=== PATIENT | female | born 1975 | race Caucasian/White ===

== ENCOUNTER 2018-10-07 07:36 | Emergency (ER) | payer OTHER ==
[2018-10-07] MEDS ORDERED: METHYLPREDNISOLONE 125 MG INJ ONE (08:08)
[2018-10-07] MEDS ORDERED: FAMOTIDINE 20 MG TAB ONE (08:09)
[2018-10-07] MEDS ORDERED: DIPHENHYDRAMINE 50 MG/ML VIAL ONE (08:09)
--- NOTE | 2018-10-07 08:33 | ER ---
Nurse's Notes [facility] Name: Betty Rosado Age: 43 yrs Sex: Female : 1975 Arrival Date: 10/07/2018 Time: 07:38 Bed 15 Private MD: Diagnosis: Urticaria, unspecified;Allergy status to unspecified drugs, medicaments and biological substances status Presentation: 10/07 07:49 Presenting complaint: Itching, scratchy throat, and right ear redness after taking hb Cipro. Transition of care: patient was not received from another setting of care. Onset: The symptoms/episode began/occurred acutely, today. Anaphylaxis evaluation, the patient reports or I have noted the following symptoms which indicate a significant risk of anaphylaxis:. Onset of symptoms was October 07, 2018. Risk Assessment: Do you want to hurt yourself or someone else? Patient reports no desire to harm self or others. Initial Sepsis Screen: Does the patient meet any 2 criteria? No. Patient's initial sepsis screen is negative. Does the patient have a suspected source of infection? No. Patient's initial sepsis screen is negative. Care prior to arrival: Medication(s) given: Benadryl 25 mg, Motrin 400 mg 30 mins CHAIRPERSON ANESTHESIOLOGY. 07:49 Method Of Arrival: Ambulatory hb 07:49 Acuity: VIKA 4 hb Triage Assessment: 07:58 General: Appears in no apparent distress. Behavior is calm, cooperative. Pain: Denies hb pain. EENT: right ear redness. Neuro: Level of Consciousness is awake, alert, obeys commands, Oriented to person, place, time, situation. Cardiovascular: Capillary refill < 3 seconds Patient's skin is warm and dry. Respiratory: Airway is patent Respiratory effort is even, unlabored, Respiratory pattern is regular, symmetrical. GI: No signs and/or symptoms were reported involving the gastrointestinal system. : No signs and/or symptoms were reported regarding the genitourinary system. Derm: Skin is intact, is healthy with good turgor, Reports itching. Musculoskeletal: No signs and/or symptoms reported regarding the musculoskeletal system. 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 - Social history:: Smoking status: Patient/guardian denies using tobacco. - Family history:: not pertinent. - Ebola Screening: : No symptoms or risks identified at this time. - Hospitalizations: : No recent hospitalization is reported. Screenin:59 Abuse screen: Denies threats or abuse. Denies injuries from another. Nutritional hb screening: No deficits noted. Tuberculosis screening: No symptoms or risk factors identified. Fall Risk None identified. Assessment: 07:59 General: SEE TRIAGE ASSESSMENT. hb 08:30 Reassessment: Patient appears in no apparent distress at this time. Patient and/or ss family updated on plan of care and expected duration. Pain level reassessed. Patient is alert, oriented x 3, equal unlabored respirations, skin warm/dry/pink. Patient states feeling better. Patient states symptoms have improved. Respiratory: Airway is patent Respiratory effort is even, unlabored, Respiratory pattern is regular, symmetrical. Derm: Skin is pink, warm \T\ dry. normal. Vital Signs: 07:47 BP 142 / 75; Pulse 79; Resp 16; Temp 98.3; Pulse Ox 100% on R/A; Weight 72.12 kg; hb Height 5 ft. 7 in. (170.18 cm) (R); Pain 0/10; 07:47 Body Mass Index 24.90 (72.12 kg, 170.18 cm) hb ED Course: 07:38 Patient arrived in ED. as 07:41 Shahid Perdomo LVN is Primary Nurse. em 07:43 Hilton Silveira MD is Attending Physician. rn 07:49 Arm band placed on. hb 07:57 Triage completed. hb 07:59 Patient has correct armband on for positive identification. Bed in low position. Call light in reach. 08:44 No provider procedures requiring assistance completed. IV discontinued, intact, ss bleeding controlled, No redness/swelling at site. Pressure dressing applied. Administered Medications: 08:03 Drug: SOLU-Medrol 125 mg Route: IVP; Site: right antecubital; ss 08:32 Follow up: Response: Marked relief of symptoms ss 08:05 Drug: Pepcid 20 mg Route: PO; ss 08:30 Follow up: Response: No adverse reaction; Marked relief of symptoms ss 08:07 Drug: Benadryl 25 mg Route: IVP; Site: right antecubital; 08:30 Follow up: Response: No adverse reaction; Marked relief of symptoms Outcome: 08:32 Discharge ordered by . rn 08:44 Discharged to home ambulatory, with significant other. ss 08:44 Condition: improved 08:44 Discharge instructions given to patient, significant other, Instructed on discharge instructions, follow up and referral plans. medication usage, Demonstrated understanding of instructions, follow-up care, medications, Prescriptions given X 2. 08:46 Patient left the ED. ss Signatures: Shahid Perdomo, RADIO DISPATCHER RADIO DISPATCHER Stephani Villagomez Roman, MD MD rn Smirch, Shelby, RN RN ss Baxter, Heather, RN RN hb
--- NOTE | 2018-10-07 08:33 | EDPHYS ---
Physician Documentation [facility] Name: Betty Rosado Age: 43 yrs Sex: Female : 1975 Arrival Date: 10/07/2018 Time: 07:38 Bed 15 Private MD: ED Physician Hilton Silveira HPI: 10/07 07:46 This 43 yrs old Female presents to ER via Unassigned with complaints of rn Allergic Reaction. 07:46 The patient presents with itching, redness of skin. Onset: The symptoms/episode rn began/occurred this morning. Associated signs and symptoms: Pertinent positives: rash, Pertinent negatives: abdominal pain, Altered mental status chest pain, fever, swelling, vomiting. Possible causes: antibiotics, Cipro. At home the patient or guardian has treated the symptoms with Benadryl. Severity of symptoms: At their worst the symptoms were mild in the emergency department the symptoms are unchanged. The patient has experienced similar episodes in the past. Reports has reactions to multiple medications, is taking cipro for UTI, has had cipro before without reaction but no other changes, reports itching and rash. No trouble breathing, but feels like is having to clear her throat. . 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 - Social history:: Smoking status: Patient/guardian denies using tobacco. - Family history:: not pertinent. - Ebola Screening: : No symptoms or risks identified at this time. - Hospitalizations: : No recent hospitalization is reported. ROS: 07:46 Constitutional: Negative for fever, chills, and weight loss, Eyes: Negative for injury, rn pain, redness, and discharge, Neck: Negative for injury, pain, and swelling, Cardiovascular: Negative for chest pain, palpitations, and edema, Respiratory: Negative for shortness of breath, cough, wheezing, and pleuritic chest pain, Abdomen/GI: Negative for abdominal pain, nausea, vomiting, diarrhea, and constipation, MS/Extremity: Negative for injury and deformity, Skin: + rash and itching Neuro: Negative for headache, weakness, numbness, tingling, and seizure. Exam: 07:46 Constitutional: This is a well developed, well nourished patient who is awake, alert, rn appears anxious Head/Face: Normocephalic, atraumatic. Eyes: Mild periorbital edema, no erythema or drainage ENT: No oral swelling, MMM Cardiovascular: No pulse deficits. Respiratory: No increased work of breathing, no retractions or nasal flaring. Skin: Warm, dry, mild diffuse erythema with excoriations, no desquamation. MS/ Extremity: Pulses equal, no cyanosis. Neurovascular intact. Full, normal range of motion. Equal circumference. Neuro: Awake and alert, GCS 15, oriented to person, place, time, and situation. Motor strength 5/5 in all extremities. Sensory grossly intact. Cerebellar exam normal. Normal gait. Vital Signs: 07:47 BP 142 / 75; Pulse 79; Resp 16; Temp 98.3; Pulse Ox 100% on R/A; Weight 72.12 kg; hb Height 5 ft. 7 in. (170.18 cm) (R); Pain 0/10; 07:47 Body Mass Index 24.90 (72.12 kg, 170.18 cm) hb MDM: 07:43 Patient medically screened. rn 08:30 Differential diagnosis: non IgE mediated drug reaction urticaria, acute allergic rn reaction. Data reviewed: vital signs, nurses notes, and as a result, I will discharge patient. Counseling: I had a detailed discussion with the patient and/or guardian regarding: the historical points, exam findings, and any diagnostic results supporting the discharge/admit diagnosis, the need for outpatient follow up, to return to the emergency department if symptoms worsen or persist or if there are any questions or concerns that arise at home. Response to treatment: the patient's symptoms have markedly improved after treatment, and as a result, I will discharge patient. Special discussion: I discussed with the patient/guardian in detail that at this point there is no indication for admission to the hospital. It is understood, however, that if the symptoms persist or worsen the patient needs to return immediately for re-evaluation. 08:30 ED course: States has taken bactrim before successfully for UTI without reaction, will rn dc home with bactrim and steroids. . 10/07 07:44 Order name: IV Start; Complete Time: 07:53 rn Administered Medications: 08:03 Drug: SOLU-Medrol 125 mg Route: IVP; Site: right antecubital; ss 08:32 Follow up: Response: Marked relief of symptoms ss 08:05 Drug: Pepcid 20 mg Route: PO; ss 08:30 Follow up: Response: No adverse reaction; Marked relief of symptoms ss 08:07 Drug: Benadryl 25 mg Route: IVP; Site: right antecubital; ss 08:30 Follow up: Response: No adverse reaction; Marked relief of symptoms ss Disposition: 10/07/18 08:32 Discharged to Home. Impression: Urticaria, unspecified, Allergy status to unspecified drugs, medicaments and biological substances status. - Condition is Stable. - Discharge Instructions: Allergies, Adult. - Prescriptions for Prednisone 20 mg Oral Tablet - take 3 tablet by ORAL route once daily for 5 days; 15 tablet. Bactrim DS 800- 160 mg Oral Tablet - take 1 tablet by ORAL route every 12 hours for 10 days; 20 tablet. - Medication Reconciliation Form, Thank You Letter, Antibiotic Education, Prescription Opioid Use form. - Follow up: Private Physician; When: As needed; Reason: Recheck today's complaints, Re-evaluation by your physician. - Problem is new. - Symptoms have improved. Signatures: Hilton Silveira MD MD rn Smirch, Shelby, RN RN Norma Yip RN RN Corrections: (The following items were deleted from the chart) 08:46 08:32 10/07/2018 08:32 Discharged to Home. Impression: Urticaria, unspecified; Allergy ss status to unspecified drugs, medicaments and biological substances status. Condition is Stable. Forms are Medication Reconciliation Form, Thank You Letter, Antibiotic Education, Prescription Opioid Use. Follow up: Private Physician; When: As needed; Reason: Recheck today's complaints, Re-evaluation by your physician. Problem is new. Symptoms have improved. rn
== END 2018-10-07 08:46 | disposition home or self-care (01) ==
LOC: ER 07:36
DX: L50.9 Urticaria, unspecified (principal); Z88.8 Allergy status to other drugs, medicaments and biological substances; Z88.5 Allergy status to narcotic agent; Z88.1 Allergy status to other antibiotic agents; Z91.040 Latex allergy status
CPT/HCPCS: 96374; 96375; 99283; J2930